=== PATIENT | female | born 1945 | race Caucasian/White ===

== ENCOUNTER 2020-11-18 10:50 | Inpatient (IN) | payer OTHER, BC ==
[2020-11-18] MEDS ORDERED: SODIUM CHLORIDE 1,000 ML IV STA (11:14)
[2020-11-18 12:34] LABS: URINE APPEARANCE CLEAR; URINE BILIRUBIN NEGATIVE (NEGATIVE); URINE COLOR YELLOW; URINE GLUCOSE (UA) NEGATIVE (NEGATIVE); URINE KETONE NEGATIVE (NEGATIVE); URINE LEUK ESTERASE NEGATIVE (NEGATIVE); URINE NITRITE NEGATIVE (NEGATIVE); URINE PROTEIN NEGATIVE (NEGATIVE)
[2020-11-18 12:41] LABS: BASO % 1.1 % (0-2.0); EOS % 5.6 % (0-4.5); HEMATOCRIT 35.2 % (32.4-45.2); HEMOGLOBIN 11.7 GM/dL (10.7-15.3); LYMPH % 24.7 % (8-40); MCHC 33.3 g/dl (32.0-36.0); MEAN CELL VOLUME 96.1 fl (80-96); MEAN PLT VOLUME 9.1 fl (7.5-11.1); MONO % 11.4 % (3.8-10.2); NEUT % 57.2 % (42.8-82.8); PLATELET COUNT 318 K/MM3 (134-434); RBC 3.67 M/mm3 (3.60-5.2); RDW 14.4 % (11.6-15.6); WHITE BLOOD COUNT 6.4 K/mm3 (4.0-10.0)
[2020-11-18 12:54] LABS: INR 0.91 (0.83-1.09); PROTHROMBIN TIME (PATIENT) 11.2 SEC (9.7-13.0)
[2020-11-18 12:59] LABS: CHLORIDE 105 mmol/L (98-107); SODIUM 137 mmol/L (136-145)
[2020-11-18 13:02] LABS: ALBUMIN 3.2 g/dl (3.4-5.0); ANION GAP 7 MMOL/L (8-16); BLOOD UREA NITROGEN 14.5 mg/dL (7-18); CO2 26 mmol/L (21-32)
[2020-11-18 13:03] LABS: GLUCOSE,RANDOM 109 mg/dL (74-106); MAGNESIUM 2.1 mg/dL (1.8-2.4)
[2020-11-18 13:05] LABS: BILIRUBIN,DIRECT 1.4 mg/dL (0.0-0.2); CREATININE 0.6 mg/dL (0.55-1.3); SGOT/AST 306 U/L (15-37); SGPT/ALT 378 U/L (13-61)
[2020-11-18 13:07] LABS: BILIRUBIN,TOTAL 2.2 mg/dL (0.2-1); TOT PROT 7.1 g/dl (6.4-8.2)
[2020-11-18 13:24] LABS: ALK PHOS 1323 U/L (45-117); LIPASE 217 U/L (73-393)
[2020-11-18] MEDS ORDERED: DEXTROSE 5%-0.45% SALINE 1,000 ML IV SCH (14:00)
[2020-11-18] MEDS ORDERED: CYCLOBENZAPRINE HCL 10 MG TABLET (FP) PO PRN ×2 (16:58→18:49)
[2020-11-18] MEDS ORDERED: AMPICILLIN NA/SULBACTAM NA 1.5 GM in SODIUM CHLORIDE 100 ML IVPB SCH (18:00)
[2020-11-18] MEDS ORDERED: TICAGRELOR 60 MG TABLET PO SCH (22:00)
[2020-11-18 22:18] VITALS: BMI 29.0
[2020-11-19 08:51] LABS: BASO % 1.2 % (0-2.0); EOS % 6.4 % (0-4.5); HEMATOCRIT 32.4 % (32.4-45.2); LYMPH % 25.6 % (8-40); MCH 32.3 pg (25.7-33.7); MCHC 33.8 g/dl (32.0-36.0); MEAN CELL VOLUME 95.6 fl (80-96); MEAN PLT VOLUME 8.6 fl (7.5-11.1); MONO % 9.6 % (3.8-10.2); NEUT % 57.2 % (42.8-82.8); PLATELET COUNT 312 K/MM3 (134-434); RBC 3.39 M/mm3 (3.60-5.2); RDW 14.4 % (11.6-15.6); WHITE BLOOD COUNT 5.3 K/mm3 (4.0-10.0)
[2020-11-19 09:02] LABS: INR 0.93 (0.83-1.09); PROTHROMBIN TIME (PATIENT) 11.3 SEC (9.7-13.0)
[2020-11-19 09:20] LABS: TOT PROT 6.3 g/dl (6.4-8.2)
[2020-11-19 09:21] LABS: CREATININE 0.5 mg/dL (0.55-1.3); MAGNESIUM 1.9 mg/dL (1.8-2.4)
[2020-11-19 09:25] LABS: ALBUMIN 2.9 g/dl (3.4-5.0); BILIRUBIN,DIRECT 1.3 mg/dL (0.0-0.2)
[2020-11-19 09:26] LABS: BLOOD UREA NITROGEN 11.3 mg/dL (7-18); CALCIUM 8.3 mg/dL (8.5-10.1)
[2020-11-19 09:27] LABS: BILIRUBIN,TOTAL 1.6 mg/dL (0.2-1)
[2020-11-19] MEDS ORDERED: PT OWN MED DRAWER 7, Y5N ONE (09:36)
[2020-11-19] MEDS ORDERED: TICAGRELOR 90 MG TABLET PO SCH (10:00)
[2020-11-19] MEDS ORDERED: LOSARTAN POTASSIUM 50 MG TABLET PO SCH (10:00)
[2020-11-19] MEDS ORDERED: metoPROLOL SUCCINATE 25 MG TAB.SR.24H (FP) PO SCH (10:00)
[2020-11-19] MEDS ORDERED: EZETIMIBE 10 MG TABLET (FP) PO SCH (10:00)
[2020-11-19] MEDS ORDERED: ASPIRIN COATED 81 MG TABLET.EC PO SCH (10:00)
[2020-11-19 10:37] VITALS: BP 138/92; PULSE 109; TEMP 97.8
[2020-11-20 11:08] LABS: TRANSGLUTAMINASE IGA < 2 U/mL (0-3); TRANSGLUTAMINASE IGG < 2 U/mL (0-5)
[2020-11-20 22:11] LABS: HEP B CORE AB, TOT Negative (Negative)
[2020-11-24 18:09] LABS: SOLUBLE LIVER ANTIGEN ABS IgG 0.6 units (0.0-20.0)
== END 2020-11-19 14:25 | disposition home or self-care (01) | DRG 443 ==
LOC: JOR 10:50 → JERBED 15:56 → J6S 21:09
PROVIDERS: ATTEND Internal Medicine
DX: R94.5 Abnormal results of liver function studies (principal); I25.10 Atherosclerotic heart disease of native coronary artery without angina pectoris; I10 Essential (primary) hypertension; F17.210 Nicotine dependence, cigarettes, uncomplicated; R10.9 Unspecified abdominal pain; K76.0 Fatty (change of) liver, not elsewhere classified; T46.6X5A Adverse effect of antihyperlipidemic and antiarteriosclerotic drugs, initial encounter; Z95.5 Presence of coronary angioplasty implant and graft; E78.5 Hyperlipidemia, unspecified; R74.01 Elevation of levels of liver transaminase levels
CPT/HCPCS: 36415; 71045-TC-FY; 74181-TC; 76705-TC; 80053; 80307; 81003; 82105; 82150; 82248; 82550; 82728; 82977; 83516; 83540; 83550; 83690; 83735; 84100; 84484; 85025; 85610; 85730; 86038; 86140; 86704; 86706; 86707; 86708; 86709; 86803; 86850; 86900; 86901; 87040; 87340; 93005; 93010; 99285-25; C9803; U0003